=== PATIENT | female | born 1940 | race Two or more races ===

== ENCOUNTER → 2017-11-26 | Outpatient (CLI) | payer MEDICARE ==
[~2017-11-26] MED LIST: AMLO10TA2 PO; ASPI-516 CHEW; ATOR20TA15 PO; BUME2TAB PO; CHOL10008 PO; COLA100C5 PO; CORE25TA PO; DIPH25CA PO; HEPAF100P SQ; IPRASOL INH; LANT500 CHEW; LEVEMIR SQ; MIRTA15 PO; MULT-142 PO; OXYC1CAP PO; PROT40TA PO; REGL10TA5 PO; TYLE325T PO; VANC1000P PO
[2017-11-26 12:50] VITALS: TEMP 97.9
[2017-11-26 13:10] VITALS: BP 125/56; PULSE 83; RESP 16; O2SAT 99
== END ==
LOC: HSDC 12:15
PROVIDERS: ATTEND Hospitalist
DX: K22.2 Esophageal obstruction (principal); R13.10 Dysphagia, unspecified; K29.70 Gastritis, unspecified, without bleeding; I10 Essential (primary) hypertension; R73.09 Other abnormal glucose; E11.9 Type 2 diabetes mellitus without complications
CPT/HCPCS: 00731; 43248; 82947; C1769